=== PATIENT | female | born 1975 | race Caucasian/White ===

== ENCOUNTER 2017-08-29 18:47 | Emergency (ER) | payer OTHER ==
--- NOTE | 2017-08-29 21:00 | EDPHY ---
H & P Time Seen by Provider: 08/29/17 18:59 HPI/ROS: 42-year-old female presents complaining of left knee pain for the last 10 days. She does not recall any injuries, or excessive activity at that time. No fever or chills, no recent illnesses. No history of blood clots. Review of systems As per HPI General no fever no chills no weakness HEENT no eye pain no eye discharge. No eye redness, no sore throat Respiratory no cough, no shortness of breath Cardiac no chest pain, no peripheral edema GI no abdominal pain, no diarrhea, no constipation, no nausea, no vomiting no flank pain, no hematuria, no dysuria Musculoskeletal no myalgias, positive joint pain Heme no easy bruising, no easy bleeding Endo no polyuria, no polydipsia Skin no rashes, no pruritus Neuro no syncope, no dizziness, no headaches Psych is no suicidal ideation, no homicidal ideation Past Medical/Surgical History: Depression Social History: Denies alcohol or drug use Smoking Status: Former smoker Physical Exam: 42-year-old female alert and oriented no acute distress nontoxic appearance, afebrile Alert and oriented in no acute distress nontoxic appearance, afebrile Atraumatic normocephalic Neck no JVD Lungs clear to auscultation, no respiratory distress Heart regular rate and rhythm Extremities no cyanosis clubbing edema Left knee full range of motion, no instability, tender to palpation in popliteal fossa and posterior calf , tender to palpation over left lateral knee. No erythema, no increased warmth Constitutional: Initial Vital Signs Temperature (C) 37.3 C 08/29/17 18:58 Heart Rate 63 08/29/17 18:58 Respiratory Rate 16 08/29/17 18:58 Blood Pressure 156/74 H 08/29/17 18:58 O2 Sat (%) 96 08/29/17 18:58 O2 Delivery Mode Room Air Allergies/Adverse Reactions: No Known Allergies Allergy (Unverified 05/26/14 12:44) Home Medications: Medication Instructions Recorded Lexapro 08/29/17 traZODone 08/29/17 Medical Decision Making - Diagnostics Imaging Results: Imaging Impressions Extremity Venous Study 08/29/17 19:15 Impression: 1. No evidence of deep vein thrombosis in the left lower extremity. 2. Asymmetric fluid collection anteriorly adjacent to the . Results called and discussed with Dr. Carmenza Polanco on August 29, 2017 at 2046 hours. Knee X-Ray 08/29/17 19:18 Impression: Negative for fracture with joint effusion noted. ED Course/Re-evaluation: Patient seen and evaluated for left knee pain of 10 days duration X-ray Negative for fracture, positive small joint effusion Ultrasound negative for DVT Impression The left knee arthralgia, possible osteoarthritis with joint effusion Plan Rest Ibuprofen Symptomatic care Follow-up with Orthopedics Differential Diagnosis: Differential diagnosis considered but not limited to: Clay cyst, ruptured Clay cyst, osteoarthritis, knee sprain Departure - Departure Disposition: Home, Routine, Self-Care Clinical Impression: Pain in left knee Condition: Good Instructions: Osteoarthritis (ED), Bakers Cyst (ED), Knee Pain (ED) Additional Instructions: Rest, ice or heat, ibuprofen, acetaminophen as needed for pain. Follow up with orthopedics . Referrals: Lesley King MD [Primary Care Provider] - As per Instructions
[2017-08-29 21:26] VITALS: BP 120/70
== END 2017-08-29 21:26 | disposition home or self-care (01) ==
LOC: CED 18:47
DX: M25.562 Pain in left knee (principal); Z87.891 Personal history of nicotine dependence
CPT/HCPCS: 73564-PO; 93971-PO